=== PATIENT | female | born 1945 | race Caucasian/White ===

== ENCOUNTER → 2017-04-14 | Outpatient (CLI) | payer MEDICARE, BC ==
[~2017-04-14] MED LIST: ACETAMINOPHEN500 M7 PO; ASPIRIN81 M2 PO; CYCLOBENZAPRINE5 MG PO; LEVOTHYROXINE112 MCG PO; LISINOPRIL10 MG PO; MOBIC PO; SYNTHROID125 PO; VITAMIN D2000 UNIT PO
--- NOTE | ~2017-04-14 | EKG ---
PATIENT: MELVIN BOUCHER UNIT #: [id number] Ventricular Rate: 54 BPM Atrial Rate: 54 BPM P-R Interval: 198 ms QRS Duration: 92 ms Q-T Interval: 446 ms QTC Calculation(Bezet): 422 ms P [place]: 63 degrees Calculated R [place]: -24 degrees Calculated T [place]: 73 degrees Diagnosis Line: Sinus bradycardia Diagnosis Line: Otherwise normal ECG Diagnosis Line: When compared with ECG of 06-MAY-2015 15:23, Diagnosis Line: No significant change was found Diagnosis Line: Confirmed by RAGHAVENDRA CASTRO MD ([id number]) on Diagnosis Line: 04/15/2017 8:00:12 AM INTERPRETING MD: GLORIA SOLORZANO
--- NOTE | ~2017-04-14 | CR63 ---
[facility] A Service of [facility] RADIOLOGY TEXT RESULTS PATIENT: MELVIN BOUCHER LOCATION: [facility] : [birth year] UNIT #: [id number] AGE: [address]: SOPHIA CARDENAS SEX: F ORDER DR: [id number] [facility] [address] [place], [place] [address] [id number] O MR#: [id number] Acc #: [id number] NAME: MELVIN BOUCHER : 1945 SEX: F STUDY DATE/TIME: 04/14/2017 12:13 UNIT: [facility] ROOM: STUDY DESCRIPTION: CR Chest 2 View Attending Physician: Michelle Lagos Referring Physician: Michelle Lagos Ordering Physician: Michelle Lagos Primary Care Physician: Grecia Epps M.D. MEDICAL IMAGING REPORT This report is preliminary unless electronic signature is present EXAM Two views chest, 04/14/2017. HISTORY Surgery clearance. Short of air at times. High blood pressure, preoperative knee surgery. REPORT PA and lateral radiographs the chest are presented. COMPARISON Comparison, 04/28/2015. FINDINGS Heart upper limits of normal in size. The heart appears slightly increased in size compared to 2014. Mediastinal contours normal overall. The lungs are well inflated without evidence of acute infectious or inflammatory disease, pleural effusion or pneumothorax. There is relative lucency in the upper lung zones bilaterally. Correlate with any risk factors for underlying emphysema. Degenerative changes in the spine. No acute-appearing bony abnormality. No pleural effusion or pneumothorax. No suspicious nodule. Dictated by... Dov Jauregui M.D. THIS IS AN ELECTRONICALLY VERIFIED REPORT Dov Jauregui M.D. at 04/15/2017 9:40 PM NIYAH/lakshmi TD: 04/14/2017 22:19 JOB #: [id number] [facility] A Service [facility] RADIOLOGY TEXT RESULTS PATIENT: MELVIN BOUCHER LOCATION: [facility] : [birth year] UNIT #: [id number] AGE: [address]: SOPHIA CARDENAS SEX: F ORDER DR: MEDICAL IMAGING REPORT Page 1 of 1 COPY
== END | disposition home or self-care (01) ==
LOC: CEKG 11:31
DX: Z01.818 Encounter for other preprocedural examination (principal); R06.02 Shortness of breath
CPT/HCPCS: 71020; 93005

== ENCOUNTER → 2017-04-20 | Outpatient (CLI) | payer MEDICARE, BC ==
--- NOTE | ~2017-04-20 | CO ---
Unit #: [id number] #: [id number] Patient: MELVIN BOUCHER [id number] [address] [place], [place] [address] [id number] O MR#: [id number] NAME: MELVIN BOUCHER ROOM: Age: 71 Sex: F Admission Date: 04/20/2017 : 1945 Attending Physician: Anthony Landeros M.D. Primary Care Physician: Grecia Epps M.D. Consultation Date: 04/20/2017 CONSULTATION REPORT REASON FOR CONSULTATION Preoperative medical evaluation prior to left total knee arthroplasty scheduled by Dr. Landeros for 05/02/17. HISTORY OF PRESENT ILLNESS The patient is a 71-year-old female who presents to preprocedural screening for the reason as indicated above. She reports left knee discomfort with ambulation but has no other complaints at this time. She denies history of myocardial infarction, congestive heart failure, stroke, TIA, diabetes or kidney disease. She denies upper chest, upper back, arm, neck or jaw pain or pressure, lightheadedness, dizziness, pre-syncope, syncope. She was evaluated for obstructive sleep apnea 15-20 years ago but has not been evaluated since that time. She does not use CPAP. She uses a mouthguard at night, which she states helps with the sleep apnea, but it was not prescribed for that purpose. She has been evaluated by Dr. Landeros and scheduled for the above referenced procedure. PAST MEDICAL HISTORY 1. Osteoarthritis. 2. Obstructive sleep apnea without pulmonary evaluation or sleep study evaluation for 15-20 years. 3. Hypertension. 4. Hypothyroidism. PAST SURGICAL HISTORY 1. Right total knee arthroplasty. 2. Left knee arthroscopy. 3. Caesarian section. 4. Bilateral cataract extraction. 5. Bilateral vein stripping. 6. Breast biopsy, benign. 7. Left hip arthroplasty. 8. Bilateral inguinal hernia repair as a child. NOTE: Please note the patient denies a personal or family history of complications to anesthesia. SOCIAL HISTORY Denies tobacco use, ETOH use and illicit drug use. FAMILY HISTORY Mother had breast cancer. Father had bladder cancer. REVIEW OF SYSTEMS Unit #: [id number] #: [id number] Patient: MELVIN BOUCHER A 10-point review of systems was conducted and otherwise negative except as indicated under history of present illness above. PHYSICAL EXAMINATION GENERAL: A 71-year-old female, awake, alert, in no acute distress. VITAL SIGNS: Temperature 96.8, heart rate 59, respiratory rate 18, blood pressure 161/90, oxygen saturation 98% on room air. HEENT: Atraumatic, normocephalic. Sclerae anicteric. No discharge from eyes, ears or nares. LYMPH: No preauricular, postauricular, tonsillar, submental, anterior or posterior cervical adenopathy. ENDOCRINE: No thyromegaly, thyroid nodules or tenderness. RESPIRATORY: Clear to auscultation in all henderson bilaterally without wheezes, rhonchi or rales. CARDIOVASCULAR: S1, S2. Regular rate and rhythm without murmur or rub. GI: Bowel sounds positive x4. Soft, nontender, nondistended. EXTREMITIES: No edema, cyanosis or clubbing. MUSCULOSKELETAL: Strength 5/5 all extremities bilaterally to flexion and extension. NEUROLOGIC: Alert and oriented x3. Speech clear. Cranial nerves II-XII grossly intact. Follows directions for examination. DIAGNOSTIC STUDIES LABORATORY: WBC 8.4, hemoglobin 13.1, hematocrit 40.1, platelet count 290,000. Vitamin B12 level 227. Serum folate 21.2. Vitamin D 25-OH total 38. Glucose 98, creatinine 0.69, sodium 140, potassium 4, chloride 105, CO2 30, calcium 9.5, total protein 7.6, albumin 4.5, globulin 3.1, bilirubin total 0.5, alkaline phosphatase 87, AST 21, ALT 14. TSH of 2.3. PT 10.8, INR 1. Urinalysis negative with neither microscopic nor culture indicated. Blood type AB+. Antibody screen negative. IMAGING: Two-view chest x-ray, date of study 04/14/2017. Findings - Heart upper limits of normal in size. Heart appears slightly increased in size compared to 2015. Mediastinal contour is normal overall. Lung well inflated without evidence of acute infectious or inflammatory disease, pleural effusion or pneumothorax. Relative lucency in the upper lung zones bilaterally. Correlate with any risk factors for underlying emphysema. Degenerative changes in the spine. No acute-appearing bony abnormality. No pleural effusion or pneumothorax. No suspicious nodule. CARDIOLOGY: Twelve-lead EKG, date of study 04/14/17 - Sinus bradycardia. Otherwise, normal ECG when compared to ECG of May 06, 2015. No significant change was found, confirmed by Efren Colon M.D. ASSESSMENT/PLAN 1. The patient is a 71-year-old female who presents to preprocedural screening for preoperative medical evaluation prior to left total knee arthroplasty. The patient's Ballard Revised Cardiac Risk Index is equal to 0.4%. This represents the patient's perioperative risk of fatal or nonfatal myocardial cardiopulmonary arrest, arrhythmia and/or pulmonary edema. This has been discussed in detail with the patient, and she wishes to proceed with surgery as scheduled at this time. 2. History of obstructive sleep apnea. The patient has not been evaluated for this in 15-20 years; therefore, she is to receive preoperative pulmonary clearance before the elective total knee procedure. This has been discussed with her, and she is in Unit #: [id number] #: [id number] Patient: MELVIN BOUCHER agreement with this plan. 3. Hypertension. Blood pressure is elevated but stable today. Will continue current medications, monitor blood pressure perioperatively and adjust medications and IV fluids accordingly. 4. Hypothyroidism. Will current dose of levothyroxine. The patient's TSH, checked within the last week, is within normal range at this time. 5. Osteoarthritis. 6. Health maintenance. The patient's preoperative dental clearance is pending at this time per review of Dr. Landeros's request for preoperative medical clearance and admission form. The patient is established with Dr. Ferreira (1) on [address]. Thank you for allowing us to participate in the care of this patient. We will gladly follow her for postop medical management pending order of Dr. Landeros. Please note this patient is an established patient with Dr. Grecia Epps. Dictated by... Mary Jones A.P.R.N. for Neftaly Guerrero/adan TD: 04/20/2017 11:26 JOB #: [id number] CONSULTATION REPORT Page 1 of 1 X Mary Jones APRN X CONSULTATION REPORT
[2017-04-20 08:49] LABS: URINE APPEARANCE CLEAR; URINE BILIRUBIN NEG (NEG); URINE BLOOD NEG (NEG); URINE COLOR YELLOW; URINE GLUCOSE NEG (NEG); URINE KETONE NEG (NEG); URINE LEUKOCYTE ESTERASE NEG (NEG); URINE NITRATE NEG (NEG); URINE PROTEIN NEG (NEG); URINE SPECIFIC GRAVITY 1.015 (1.003-1.035); URINE UROBILINOGEN 0.2 MG/DL (NEG)
[2017-04-20 08:51] LABS: CULTURE INDICATED? NO
[2017-04-20 09:00] LABS: PROTHROMBIN TIME (PATIENT) 10.8 SECONDS (10.0-11.7)
== END | disposition home or self-care (01) ==
LOC: EDSTATUS 08:00 → CAMB 08:00
PROVIDERS: Orthopaedic Surgery
DX: Z01.812 Encounter for preprocedural laboratory examination (principal); M17.12 Unilateral primary osteoarthritis, left knee
CPT/HCPCS: 36415; 81003; 85610; 86850; 86900; 86901; 87070

== ENCOUNTER → 2017-05-18 | Outpatient (CLI) | payer MEDICARE, BC ==
--- NOTE | ~2017-05-18 | MY29 ---
[facility] A Service of [facility] RADIOLOGY TEXT RESULTS PATIENT: MELVIN BOUCHER LOCATION: [facility] : [birth year] UNIT #: [id number] AGE: [address]: Grecia Epps MD SEX: F ORDER DR: [id number] [facility] [address] [place], [place] [address] [id number] O MR#: [id number] Acc #: [id number] NAME: MELVIN BOUCHER : 1945 SEX: F STUDY DATE/TIME: 05/18/2017 13:25 UNIT: [facility] ROOM: STUDY DESCRIPTION: MY DENNIS SCREENING W/ CAD BILAT Attending Physician: Grecia Epps M.D. Referring Physician: Grecia Epps M.D. Ordering Physician: Grecia Epps M.D. Primary Care Physician: Grecia Epps M.D. MEDICAL IMAGING REPORT This report is preliminary unless electronic signature is present EXAM Digital screening mammogram 05/18/2017 HISTORY 71-year-old woman positive family history, mother age 51. Annual screen. COMPARISON 04/06/2011, 10/11/2013, 02/02/2016. FINDINGS Digital imaging of each breast was completed utilizing a two-view examination of each breast in craniocaudal and mediolateral-oblique projections. Review and interpretation of digital mammograms include a second review in conjunction with FDA-approved CAD device. There is a normal parenchymal presentation bilaterally consistent with the patient's age. There are no breast masses imaged and no parenchymal asymmetry is visualized. There are no suspicious microcalcifications and I see no focal architectural disturbance. IMPRESSION Negative screening digital mammogram. One-year followup recommended. Patients over the age of 40 are entered into a reminder system with target due date for the next mammogram. A result letter will also be sent to the patient. BIRADS: 1 Negative Dictated by... Jesu Cueva M.D. [facility] A Service of [facility] RADIOLOGY TEXT RESULTS PATIENT: MELVIN BOUCHER LOCATION: [facility] : [birth year] UNIT #: [id number] AGE: [address]: Grecia Epps MD SEX: F ORDER DR: THIS IS AN ELECTRONICALLY VERIFIED REPORT Jesu Cueva M.D. at 05/19/2017 8:05 AM Feliz TD: 05/18/2017 20:02 JOB #: [id number] MEDICAL IMAGING REPORT Page 1 of 1 COPY
== END | disposition home or self-care (01) ==
LOC: CWCC 12:59
DX: Z12.31 Encounter for screening mammogram for malignant neoplasm of breast (principal); Z80.3 Family history of malignant neoplasm of breast
CPT/HCPCS: G0202

== ENCOUNTER → 2017-05-27 | Outpatient (CLI) | payer MEDICARE, BC ==
--- NOTE | ~2017-05-27 | MR113 ---
[facility] A Service of [facility] RADIOLOGY TEXT RESULTS PATIENT: MELVIN BOUCHER LOCATION: [facility] : 49 UNIT #: [id number] AGE: [address]: Grecia Epps MD SEX: F ORDER DR: [id number] [facility] [address] [place], [place] [address] [id number] O MR#: [id number] Acc #: [id number] NAME: MELVIN BOUCHER : 1945 SEX: F STUDY DATE/TIME: 05/27/2017 8:23 UNIT: [facility] ROOM: STUDY DESCRIPTION: MR Lumbar Wo Contrast Attending Physician: Grecia Epps M.D. Referring Physician: Grecia Epps M.D. Ordering Physician: Grecia Epps M.D. Primary Care Physician: Greica Epps M.D. MRI CENTER REPORT This report is preliminary unless electronic signature is present. EXAM Lumbar spine MRI without contrast. HISTORY Back pain, right lower extremity radiculopathy, sciatic pain for 5 years, worsening pain the past 2 weeks. No history of cancer or lumbar spine surgery. No trauma. COMMENT MRI of the lumbar spine performed without contrast using routine 1.5T imaging technique. Comparison none. Sagittal alignment is normal. The discs are desiccated with mild loss of intervertebral disc height at L2-3 through L5-S1. The conus medullaris terminates at L1-2 and is normal. Bone marrow signal intensity is unremarkable and there is multiple small Schmorl node formation. At L1-2, there is mild bilateral facet degenerative change. No canal or foraminal impingement. At L2-3, moderate facet degenerative change bilaterally with ligamentum flavum thickening. Mild central canal stenosis. [id number]-mb-[id number] foraminal narrowing right, milder foraminal narrowing left. At L3-4, moderate facet degenerative change bilaterally with ligamentum flavum thickening. There is a mild concentric disc bulge and there is a broad superimposed right paramedian to posterolateral protrusion with annular fissure. There is impingement upon expected location of the right L3 root within and lateral to the foramen. There is moderate right, [id number]-ah-kwviuq left-side foraminal impingement. There is moderate central canal stenosis with mass effect on right greater than left lateral recess. [facility] A Service of [facility] RADIOLOGY TEXT RESULTS PATIENT: MELVIN BOUCHER [facility] : [birth year] UNIT #: [id number] AGE: [address]: Grecia Epps MD SEX: F ORDER DR: At L4-5, moderate bilateral facet degenerative change with concentric disc bulge and a superimposed broad posterior protrusion. There is a small central component of extrusion extending slightly caudad from the disc level but remaining contiguous with it. The combination of findings result in at least moderate central canal stenosis with mass effect on the left greater than right lateral recess. Lrjd-yr-woknvlci left greater than right foraminal narrowing. L5-S1, moderate facet degenerative change bilaterally with mild concentric disc bulge, superimposed broad posterior protrusion more prominent to the right side posterolaterally. There is mild effacement of the thecal sac and no central canal stenosis. There is mild mass effect on the right lateral recess. There is mild right-side foraminal narrowing. There is some edema soft tissues adjacent to the right-sided 2-3 facet joint inferiorly. I suspect this is related to facet arthritis. Partly seen is a left renal cyst. IMPRESSION Multilevel lumbar degenerative changes are detailed above with multilevel canal stenosis and foraminal compromise. Canal stenosis is most prominent at L4-5 where it is at least moderate. Also moderate canal stenosis at the 3-4 level. Please refer to the [id number] discussion. Also multilevel facet arthritis with some soft tissue edema adjacent to the facet arthritis at L2-3 on the right side. See above. Dictated by... Suzy Mathews M.D. THIS IS AN ELECTRONICALLY VERIFIED REPORT Suzy Mathews M.D. at 05/27/2017 5:42 PM KAROLINE/stephen TD: 05/27/2017 15:06 JOB #: [id number] MRI CENTER REPORT Page 1 of 1 COPY
== END | disposition home or self-care (01) ==
LOC: CMRI 07:55
DX: M51.16 Intervertebral disc disorders with radiculopathy, lumbar region (principal); M51.17 Intervertebral disc disorders with radiculopathy, lumbosacral region; M46.96 Unspecified inflammatory spondylopathy, lumbar region; M48.06 Spinal stenosis, lumbar region; M47.26 Other spondylosis with radiculopathy, lumbar region; M47.27 Other spondylosis with radiculopathy, lumbosacral region
CPT/HCPCS: 72148